=== PATIENT | male | born 1960 | race Caucasian/White ===

== ENCOUNTER 2018-06-18 11:44 | Emergency (ER) | payer OTHER ==
[2018-06-18 11:48] VITALS: BP 156/93; PULSE 69; TEMP 98.5; BMI 31.2
[2018-06-18] MEDS ORDERED: IBUPROFEN 600 MG TABLET (FP) PO ONE ×2 (12:07→12:10)
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
== END 2018-06-18 13:58 | disposition home or self-care (01) ==
LOC: FER 11:44
DX: S16.1XXA Strain of muscle, fascia and tendon at neck level, initial encounter (principal); S39.012A Strain of muscle, fascia and tendon of lower back, initial encounter; V43.52XA Car driver injured in collision with other type car in traffic accident, initial encounter; Y93.89 Activity, other specified; Y92.410 Unspecified street and highway as the place of occurrence of the external cause
CPT/HCPCS: 72100-TC-FY; 99282-25

== ENCOUNTER 2024-07-25 00:15 | Inpatient (IN) | payer OTHER ==
[2024-07-25 00:27] VITALS: BMI 29.3
[2024-07-25] MEDS ORDERED: morphine SULFATE 4 MG/ML VIAL ONE (00:48)
[2024-07-25] MEDS ORDERED: PANTOPRAZOLE SODIUM 40 MG VIAL ONE (00:48)
[2024-07-25] MEDS: SODIUM CHLORIDE 1,000 ML IV ONE (00:54)
[2024-07-25] MEDS: morphine CARPU-JECT 4 MG/1 ML DISP.SYRIN IVPUSH ONE (00:54)
[2024-07-25] MEDS: PANTOPRAZOLE SODIUM 40 MG VIAL IVPUSH ONE (00:55)
[2024-07-25 01:09] LABS: HEMATOCRIT 43.1 % (35.4-49); HEMOGLOBIN 14.6 GM/dL (11.7-16.9); MCHC 33.9 g/dl (32.0-35.9); MEAN CELL VOLUME 91.4 fl (80-96); MEAN PLT VOLUME 7.1 fl (7.5-11.1); PLATELET COUNT 255 10^3/uL (134-434); RBC 4.71 M/mm3 (4.00-5.60); RDW 13.5 % (11.9-15.9); WHITE BLOOD COUNT 10.4 K/mm3 (4.0-10.0)
[2024-07-25 01:13] LABS: URINE BILIRUBIN NEGATIVE (NEGATIVE); URINE COLOR YELLOW; URINE GLUCOSE (UA) NEGATIVE (NEGATIVE); URINE KETONE NEGATIVE (NEGATIVE); URINE LEUK ESTERASE NEGATIVE (NEGATIVE); URINE NITRITE NEGATIVE (NEGATIVE); URINE PROTEIN NEGATIVE (NEGATIVE)
[2024-07-25 01:30] LABS: POTASSIUM 3.4 mmol/L (3.5-5.1)
[2024-07-25 01:32] LABS: ALBUMIN 3.5 g/dl (3.4-5.0); BLOOD UREA NITROGEN 12.8 mg/dL (7-18); CALCIUM 8.2 mg/dL (8.5-10.1)
[2024-07-25 01:33] LABS: MAGNESIUM 2.2 mg/dL (1.8-2.4)
[2024-07-25 01:35] LABS: CREATININE 1.1 mg/dL (0.55-1.3)
[2024-07-25 01:37] LABS: BILIRUBIN,TOTAL 0.3 mg/dL (0.2-1); TOT PROT 6.7 g/dl (6.4-8.2)
[2024-07-25 02:31] LABS: HIV INTERPRETATION NEGATIVE (NEGATIVE)
[2024-07-25 04:13] LABS: URINE APPEARANCE CLEAR
[2024-07-25 04:16] LABS: EPI CELLS 1.2 /uL (0-25.1); URINE BACTERIA 0.9 /uL (0-1359); URINE RBC 23 /uL (0-23.9); URINE WBC 1.7 /uL (0-25.8)
[2024-07-25] MEDS ORDERED: PIPERACILLIN/TAZOBACTAM 4.5 GM VIAL IVPB ONE (06:12)
[2024-07-25] MEDS: PIPERACILLIN/TAZOB 4.5 GM 4.5 GM in DEXTROSE 5%-WATER 100 ML IVPB ONE (06:17)
[2024-07-25] MEDS ORDERED: LACTATED RINGERS SOLUTION 1,000 ML/1,000 ML INFUS.BAG IV SCH ×2 (12:30→12:54)
[2024-07-25] MEDS: LACTATED RINGERS SOLUTION 1,000 ML/1,000 ML INFUS.BAG IV SCH (13:22)
[2024-07-25] MEDS: ACETAMINOPHEN 1000 MG/100 ML BAG IVPB PRN (19:43)
[2024-07-26 06:55] VITALS: RESP 18
[2024-07-26 08:49] LABS: HEMOGLOBIN 13.3 GM/dL (11.7-16.9); MCH 30.9 pg (25.7-33.7); MCHC 33.3 g/dl (32.0-35.9); MEAN CELL VOLUME 92.8 fl (80-96); MEAN PLT VOLUME 7.3 fl (7.5-11.1); PLATELET COUNT 209 10^3/uL (134-434); RBC 4.31 M/mm3 (4.00-5.60); RDW 13.4 % (11.9-15.9); WHITE BLOOD COUNT 6.5 K/mm3 (4.0-10.0)
[2024-07-26 09:12] LABS: POTASSIUM 3.5 mmol/L (3.5-5.1)
[2024-07-26 09:15] LABS: ALBUMIN 2.8 g/dl (3.4-5.0); BLOOD UREA NITROGEN 9.8 mg/dL (7-18); MAGNESIUM 2.2 mg/dL (1.8-2.4)
[2024-07-26 09:18] LABS: CREATININE 0.9 mg/dL (0.55-1.3); PHOSPHOROUS 2.6 mg/dL (2.5-4.9)
[2024-07-26 09:19] LABS: BILIRUBIN,TOTAL 0.4 mg/dL (0.2-1); TOT PROT 5.7 g/dl (6.4-8.2)
[2024-07-27 07:13] VITALS: BP 132/94; PULSE 56; TEMP 97.5
[2024-07-27 09:51] LABS: BASO % 0.6 % (0-2.0); EOS % 8.2 % (0-4.5); HEMATOCRIT 41.4 % (35.4-49); HEMOGLOBIN 14.1 GM/dL (11.7-16.9); LYMPH % 42.6 % (8-40); MCH 31.2 pg (25.7-33.7); MCHC 34.2 g/dl (32.0-35.9); MEAN CELL VOLUME 91.3 fl (80-96); MEAN PLT VOLUME 7.2 fl (7.5-11.1); MONO % 8.8 % (3.8-10.2); NEUT % 39.8 % (42.8-82.8); PLATELET COUNT 224 10^3/uL (134-434); RBC 4.53 M/mm3 (4.00-5.60); RDW 13.3 % (11.9-15.9); WHITE BLOOD COUNT 5.4 K/mm3 (4.0-10.0)
[2024-07-27 10:00] LABS: POTASSIUM 4.2 mmol/L (3.5-5.1)
[2024-07-27 10:04] LABS: ALBUMIN 3.1 g/dl (3.4-5.0); BLOOD UREA NITROGEN 5.8 mg/dL (7-18); CALCIUM 8.4 mg/dL (8.5-10.1)
[2024-07-27 10:07] LABS: CREATININE 0.9 mg/dL (0.55-1.3)
[2024-07-27 10:09] LABS: BILIRUBIN,TOTAL 0.4 mg/dL (0.2-1); TOT PROT 6.2 g/dl (6.4-8.2)
== END 2024-07-27 11:21 | disposition home or self-care (01) | DRG 395 ==
LOC: FER 00:15 → J8W 06:14
PROVIDERS: ADMIT Internal Medicine; ATTEND Nurse Practitioner Family
DX: K43.6 Other and unspecified ventral hernia with obstruction, without gangrene (principal); R10.31 Right lower quadrant pain
CPT/HCPCS: 36415; 71045-TC-FY; 74019-TC-FY; 74177-TC; 80053; 81003; 83605; 83735; 84100; 84484; 85025; 85027; 86803; 86850; 86900; 86901; 87086; 87389; 93005; 99285-25; J0131; Q9967

== ENCOUNTER 2025-01-13 16:03 | Emergency (ER) | payer OTHER ==
[2025-01-13 16:13] VITALS: BP 168/80; PULSE 83; RESP 16; TEMP 99.5; BMI 29.0
[2025-01-13] MEDS ORDERED: ACETAMINOPHEN 325 MG TABLET (FP) ONE (16:39)
[2025-01-13] MEDS: ACETAMINOPHEN 500 MG TABLET (FP) PO ONE (16:42)
== END 2025-01-13 17:26 | disposition home or self-care (01) ==
LOC: FER 16:03
DX: R05.9 Cough, unspecified (principal); R09.81 Nasal congestion
CPT/HCPCS: 0241U-QW; 71045-TC-FY; 99284-25